=== PATIENT | male | born 1970 | race Caucasian/White ===

== ENCOUNTER 2017-02-28 17:09 | Emergency (ER) | payer MEDICARE ==
[~2017-02-28] VITALS: Ht 162.6 cm; Wt 100.0 kg
[~2017-02-28 17:09] MED LIST: AUGMENTIN500TAB PO; COLACE100 MG OR; EFFEXOR XR75 MG OR; LORTAB 10 OR; LYRICA75 MG OR; OXYCODONE15 MG OR; PAROXETINE20 MG OR; PROTONIX40 M2 OR; ROBAXIN250 MG OR; ULTRAM50 MG OR; ULTRAM50 MG PO; VALIUM5 MG OR; XANAX0.25 MG OR; ZANTAC150 M1 OR; [UNRECOGNIZED DRUG - REMARK]
[2017-02-28] MEDS ORDERED: EPIPEN 2-P0.3 MG/0.3 IM (23:24)
[2017-02-28] MEDS ORDERED: STERAPRED DS10 MG PO (23:24)
[2017-02-28 23:35] VITALS: BP 138/70
== END 2017-02-28 23:41 | disposition home or self-care (01) ==
LOC: ED 17:09
DX: T63.441A Toxic effect of venom of bees, accidental (unintentional), initial encounter (principal); T78.2XXA Anaphylactic shock, unspecified, initial encounter; L29.9 Pruritus, unspecified; Y93.89 Activity, other specified; Y92.007 Garden or yard of unspecified non-institutional (private) residence as the place of occurrence of the external cause

== ENCOUNTER 2017-05-25 20:26 | Emergency (ER) | payer MEDICARE ==
[~2017-05-25] VITALS: Ht 162.6 cm; Wt 77.2 kg
[~2017-05-25 20:26] MED LIST changes: +EPIPEN 2-P0.3 MG/0.3 IM; +STERAPRED DS10 MG PO
[2017-05-25] MEDS ORDERED: AMOXICILLIN500 MG PO (21:58)
[2017-05-25] MEDS ORDERED: PERCOCET 5/325M1 TAB PO (21:58)
[2017-05-25 22:20] VITALS: BP 148/91
== END 2017-05-25 22:15 | disposition home or self-care (01) ==
LOC: ED 20:26
DX: K08.89 Other specified disorders of teeth and supporting structures (principal); R50.9 Fever, unspecified

== ENCOUNTER 2017-08-10 21:40 | Emergency (ER) | payer MEDICARE ==
[~2017-08-10] VITALS: Ht 162.6 cm; Wt 78.2 kg
[~2017-08-10 21:40] MED LIST changes: +AMOXICILLIN500 MG PO; +PERCOCET 5/325M1 TAB PO
[2017-08-10] MEDS ORDERED: MORPHINE SUL30 M3 PO (22:01)
[2017-08-10] MEDS ORDERED: PERCOCET 5/321 COMBO PO (22:33)
[2017-08-10] MEDS ORDERED: AMOXICILLIN500 MG PO (22:33)
[2017-08-10 23:00] VITALS: BP 169/89
== END 2017-08-10 23:08 | disposition home or self-care (01) ==
LOC: ED 21:40
DX: K04.7 Periapical abscess without sinus (principal); K08.89 Other specified disorders of teeth and supporting structures

== ENCOUNTER 2018-05-03 16:01 | Emergency (ER) | payer MEDICARE ==
[~2018-05-03] VITALS: Ht 162.6 cm; Wt 81.8 kg
[~2018-05-03 16:01] MED LIST changes: +MORPHINE SUL30 M3 PO; +PERCOCET 5/321 COMBO PO
[2018-05-03] MEDS ORDERED: KEFLEX500 MG PO (17:46)
[2018-05-03] MEDS ORDERED: PERCOCET 10/31 COMBO PO (17:46)
[2018-05-03] MEDS ORDERED: TORADOL PO (17:46)
[2018-05-03 17:58] VITALS: BP 118/76
== END 2018-05-03 18:15 | disposition home or self-care (01) ==
LOC: ED 16:01
PROC: 0HQGXZZ Repair Left Hand Skin, External Approach (ICD-10-PCS; principal; 2018-05-03)
DX: S62.631B Displaced fracture of distal phalanx of left index finger, initial encounter for open fracture (principal); S61.215A Laceration without foreign body of left ring finger without damage to nail, initial encounter; W29.8XXA Contact with other powered hand tools and household machinery, initial encounter; Y93.89 Activity, other specified; Y92.009 Unspecified place in unspecified non-institutional (private) residence as the place of occurrence of the external cause; H91.90 Unspecified hearing loss, unspecified ear; F41.0 Panic disorder [episodic paroxysmal anxiety]; F32.9 Major depressive disorder, single episode, unspecified

== ENCOUNTER 2018-05-05 13:46 | Emergency (ER) | payer MEDICARE ==
[~2018-05-05] VITALS: Ht 162.6 cm; Wt 80.0 kg
[~2018-05-05 13:46] MED LIST changes: +KEFLEX500 MG PO; +PERCOCET 10/31 COMBO PO; +TORADOL PO
[2018-05-05 14:40] VITALS: BP 119/74
== END 2018-05-05 14:40 | disposition home or self-care (01) ==
LOC: ED 13:46
DX: S61.201D Unspecified open wound of left index finger without damage to nail, subsequent encounter (principal); S61.205D Unspecified open wound of left ring finger without damage to nail, subsequent encounter; X58.XXXD Exposure to other specified factors, subsequent encounter

== ENCOUNTER 2018-09-01 22:41 | Emergency (ER) | payer MEDICARE ==
[~2018-09-01] VITALS: Ht 162.6 cm; Wt 82.0 kg
[2018-09-01 22:58] VITALS: BP 136/92
[2018-09-01] MEDS ORDERED: AMOXICILLIN500 MG PO (23:06)
[2018-09-01] MEDS ORDERED: ZOFRAN ODT4 MG PO (23:06)
== END 2018-09-01 23:20 | disposition home or self-care (01) ==
LOC: ED 22:41
DX: K04.7 Periapical abscess without sinus (principal); K08.89 Other specified disorders of teeth and supporting structures; S02.5XXA Fracture of tooth (traumatic), initial encounter for closed fracture

== ENCOUNTER 2018-11-29 18:17 | Emergency (ER) | payer MEDICARE ==
[~2018-11-29] VITALS: Ht 162.6 cm; Wt 97.0 kg
[~2018-11-29 18:17] MED LIST changes: +ZOFRAN ODT4 MG PO
[2018-11-29] MEDS ORDERED: EPIPEN 2-P0.3 MG/0.3 SC (19:05)
[2018-11-29] MEDS ORDERED: PREDNISONE10 MG PO (19:05)
[2018-11-29 19:10] VITALS: BP 132/78
== END 2018-11-29 19:10 | disposition home or self-care (01) ==
LOC: ED 18:17
DX: T63.481A Toxic effect of venom of other arthropod, accidental (unintentional), initial encounter (principal); H91.90 Unspecified hearing loss, unspecified ear

== ENCOUNTER 2018-12-29 19:09 | Emergency (ER) | payer BC, MEDICARE ==
[~2018-12-29] VITALS: Ht 162.6 cm; Wt 77.0 kg
[~2018-12-29 19:09] MED LIST changes: +EPIPEN 2-P0.3 MG/0.3 SC; +PREDNISONE10 MG PO
[2018-12-29] MEDS ORDERED: MEDDOSEPAK PO (19:33)
[2018-12-29] MEDS ORDERED: BENADRYL 50MG C50 MG PO (19:33)
[2018-12-29] MEDS ORDERED: PEPCID20 MG PO (19:33)
[2018-12-29 20:05] VITALS: BP 125/77
== END 2018-12-29 20:05 | disposition home or self-care (01) | DRG 918 ==
LOC: ED 19:09
DX: T63.481A Toxic effect of venom of other arthropod, accidental (unintentional), initial encounter (principal); H91.90 Unspecified hearing loss, unspecified ear

== ENCOUNTER 2019-04-10 14:19 | Emergency (ER) | payer OTHER, BC, MEDICARE ==
[~2019-04-10] VITALS: Ht 162.6 cm; Wt 85.0 kg
[~2019-04-10 14:19] MED LIST changes: +BENADRYL 50MG C50 MG PO; +MEDDOSEPAK PO; +PEPCID20 MG PO
[2019-04-10] MEDS ORDERED: EPIPEN 2-P0.3 MG/0.3 IM (17:26)
[2019-04-10] MEDS ORDERED: MEDDOSEPAK PO (17:26)
[2019-04-10 17:32] VITALS: BP 147/64
== END 2019-04-10 17:41 | disposition left against medical advice (07) | DRG 918 ==
LOC: ED 14:19
DX: T63.461A Toxic effect of venom of wasps, accidental (unintentional), initial encounter (principal); T78.2XXA Anaphylactic shock, unspecified, initial encounter; H91.3 Deaf nonspeaking, not elsewhere classified; Z91.19 Patient's noncompliance with other medical treatment and regimen

== ENCOUNTER 2020-05-30 13:46 | Emergency (ER) | payer OTHER, BC, MEDICARE ==
[~2020-05-30] VITALS: Ht 162.6 cm; Wt 78.0 kg
[2020-05-30] MEDS ORDERED: MEDDOSEPAK PO (14:53)
[2020-05-30 15:10] VITALS: BP 144/74
== END 2020-05-30 15:10 | disposition home or self-care (01) | DRG 918 ==
LOC: ED 13:46
DX: T63.441A Toxic effect of venom of bees, accidental (unintentional), initial encounter (principal); H91.3 Deaf nonspeaking, not elsewhere classified; F32.9 Major depressive disorder, single episode, unspecified; F41.0 Panic disorder [episodic paroxysmal anxiety]

== ENCOUNTER 2021-05-17 14:02 | Emergency (ER) | payer SELFPAY ==
[~2021-05-17] VITALS: Ht 162.6 cm; Wt 68.0 kg
[2021-05-17] MEDS ORDERED: MORPHINE SUL30 M3 PO (14:16)
[2021-05-17] MEDS ORDERED: LATANOPROST0.005 % OU (15:36)
[2021-05-17] MEDS ORDERED: KEFLEX500 MG PO (15:45)
[2021-05-17 15:55] VITALS: BP 118/65
== END 2021-05-17 15:55 | disposition home or self-care (01) | DRG 605 ==
LOC: ED 14:02
PROC: 0HQJXZZ Repair Left Upper Leg Skin, External Approach (ICD-10-PCS; principal; 2021-05-17)
DX: S71.132A Puncture wound without foreign body, left thigh, initial encounter (principal); H91.90 Unspecified hearing loss, unspecified ear; F32.A Depression, unspecified; F41.0 Panic disorder [episodic paroxysmal anxiety]; W22.8XXA Striking against or struck by other objects, initial encounter; Y93.89 Activity, other specified; Y92.89 Other specified places as the place of occurrence of the external cause; Y99.0 Civilian activity done for income or pay

== ENCOUNTER 2022-03-30 07:27 | Emergency (ER) | payer BC ==
[~2022-03-30] VITALS: Ht 162.6 cm; Wt 86.0 kg
[~2022-03-30 07:27] MED LIST changes: +LATANOPROST0.005 % OU
[2022-03-30 07:40] VITALS: BP 136/89
[2022-03-30] MEDS ORDERED: PROAIR HFA108 MCG/AC INHW/SPAC (09:20)
[2022-03-30] MEDS ORDERED: EC-NAPROXEN500 MG PO (09:20)
[2022-03-30] MEDS ORDERED: TUSSI-PRE2 PO (09:20)
[2022-03-30 09:26] VITALS: BP 136/89
== END 2022-03-30 10:14 | disposition home or self-care (01) | DRG 179 ==
LOC: ED 07:27
DX: U07.1 COVID-19 (principal); R05.9 Cough, unspecified; R50.9 Fever, unspecified; H91.90 Unspecified hearing loss, unspecified ear; F41.0 Panic disorder [episodic paroxysmal anxiety]; F32.A Depression, unspecified
CPT/HCPCS: J1100

== ENCOUNTER 2023-02-26 08:20 | Emergency (ER) | payer SELFPAY ==
[~2023-02-26] VITALS: Ht 170.2 cm; Wt 74.8 kg
[2023-02-26] VITALS (18 sets, daily range): BP systolic 116–156; BP diastolic 67–94
[~2023-02-26 08:20] MED LIST changes: +EC-NAPROXEN500 MG PO; +PROAIR HFA108 MCG/AC INHW/SPAC; +TUSSI-PRE2 PO
[2023-02-26 08:58] LABS: BASO% 0.3 % (0-3); EOS% 1.7 % (0-8); HEMATOCRIT 50.6 % (39.0-50.0); HEMOGLOBIN 16.2 g/dl (14.0-18.0); IMMATURE GRANULOCYTES 0.3 % (0.0-5.0); LYMPH% 23.4 % (15-41); MEAN CELL VOLUME 89.9 fL CALC (80.0-100.0); MEAN CORPUSCULAR HGB 28.8 pG CALC (26.0-32.0); MONO% 8.6 % (2-13); NEUT# 3.96 thou/uL (1.82-7.42); NEUT% 65.7 % (42-76); RED BLOOD COUNT 5.63 mill/uL (4.70-6.10); RED CELL DISTRI WIDTH 12.6 % (11.5-15.5)
[2023-02-26 09:17] LABS: ALBUMIN 4.3 g/dL (3.2-5.0); ALKALINE PHOSPHATASE 54 u/l (38-126); ANION GAP 9 (6-22 (CALC)); BILIRUBIN, TOTAL 0.6 mg/dL (0.2-1.3); BUN 14 mg/dL (9-20); BUN/CREATININE RATIO 14 (12-20 (CALC)); CHLORIDE 103 mmol/l (95-108); CREATININE 1.1 mg/dL (0.7-1.3); GFR FOR AFR.AMER. > 60 ML/MIN (>=60 (CALC)); GFR OTHER RACES > 60 ML/MIN (>=60 (CALC)); POTASSIUM 4.3 mmol/l (3.5-5.1); SGOT/AST 35 u/l (17-59); SODIUM 138 mmol/l (137-146); TOTAL PROTEIN 7.6 g/dL (6.3-8.2)
[2023-02-26 09:44] LABS: CARBON DIOXIDE 30 mmol/l (22-30)
[2023-02-26] MEDS ORDERED: PROTONIX40 MG PO (16:19)
== END 2023-02-26 16:21 | disposition home or self-care (01) | DRG 392 ==
LOC: ED 08:20
PROVIDERS: Family Medicine
DX: K29.70 Gastritis, unspecified, without bleeding (principal); H91.90 Unspecified hearing loss, unspecified ear
CPT/HCPCS: S0164

== ENCOUNTER 2023-09-09 09:20 | Emergency (ER) | payer MEDICAID ==
[~2023-09-09] VITALS: Ht 170.2 cm; Wt 72.0 kg
[~2023-09-09 09:20] MED LIST changes: +PROTONIX40 MG PO
[2023-09-09 09:28] VITALS: BP 137/69
[2023-09-09 09:30] VITALS: BP 124/72
[2023-09-09 10:00] VITALS: BP 128/73
[2023-09-09] MEDS ORDERED: AMOX/K CLAV875 M1 PO (10:09)
== END 2023-09-09 10:18 | disposition home or self-care (01) ==
LOC: ED 09:20
DX: J32.9 Chronic sinusitis, unspecified (principal); H91.90 Unspecified hearing loss, unspecified ear; F41.9 Anxiety disorder, unspecified; F32.A Depression, unspecified